=== PATIENT | male | born 1985 | race African-American/Black ===

== ENCOUNTER 2022-06-01 12:21 | Emergency (ER) | payer OTHER ==
[2022-06-01 12:36] VITALS: BP 129/85; PULSE 82; RESP 16; TEMP 99.5; BMI 30.3
== END 2022-06-01 12:59 | disposition home or self-care (01) ==
LOC: FER 12:21
DX: S01.112A Laceration without foreign body of left eyelid and periocular area, initial encounter (principal); S61.412A Laceration without foreign body of left hand, initial encounter; X99.1XXA Assault by knife, initial encounter
CPT/HCPCS: 99282-25